=== PATIENT | female | born 1995 | race African-American/Black ===

== ENCOUNTER 2017-02-11 15:20 | Emergency (ER) | payer OTHER ==
[~2017-02-11] VITALS: Ht 157.5 cm; Wt 68.0 kg
[2017-02-11 15:21] VITALS: BP 113/55; PULSE 71; RESP 16; TEMP 99.1; O2SAT 98
--- NOTE | 2017-02-11 17:58 | PD ---
HPI Chief Complaint: ENT Complaint Time Seen by Provider: 17:57 Travel History International Travel<30 days: No Contact w/Intl Traveler<30days: No Traveled to known affect area: No History of Present Illness HPI 21-year-old female here for evaluation of sore throat. Symptoms started 1 week ago. It hurts to swallow and her tonsils feel swollen when she swallows. She also endorses slight rhinorrhea. She was seen by school nurse and was prescribed amoxicillin approximately 5 days ago. Symptoms have not improved which is what prompted evaluation. She does endorse some increased fatigue over the past several days as well. Denies fevers, chills, cough, rash. No recent travel. No sick contacts. She has no other complaints at this time. [facility] Past Medical History ?: Not LMP: 01/20/17 Social History Alcohol Use: No Tobacco Use: Yes Allergies-Medications (Allergen,Severity, Reaction): Coded Allergies: No Known Allergies (Unverified , 02/11/17) Reported Meds & Prescriptions Reported Meds & Active Scripts Active Reported [Vivance] Amoxicillin 500 Mg Tab 500 Mg PO BID Review of Systems Except as stated in HPI: all other systems reviewed are Neg Physical Exam Narrative GENERAL: Well-nourished female in no acute distress SKIN: Warm and dry. HEAD: Atraumatic. Normocephalic. EYES: Pupils equal and round. No scleral icterus. No injection or drainage. ENT: No nasal bleeding or discharge. Mucous membranes pink and moist. Tonsillar erythema and exudate noted bilaterally. Uvula midline with no mass effect. NECK: Trachea midline. No JVD. Anterior cervical lymphadenopathy is noted. CARDIOVASCULAR: Regular rate and rhythm. No murmur appreciated. RESPIRATORY: No accessory muscle use. Clear to auscultation. Breath sounds equal bilaterally. GASTROINTESTINAL: Abdomen soft, non-tender, nondistended. Hepatic and splenic margins not palpable. Data Data Last Documented VS Vital Signs Date Time Temp Pulse Resp B/P (MAP) Pulse Ox O2 Delivery O2 Flow Rate FiO2 02/11/17 19:27 02/11/17 15:21 99.1 71 16 98 Room Air Orders Orders Monoscreen (02/11/17 18:08) Group A Rapid Strep Screen (02/11/17 18:08) Strep Culture (Group A) (02/11/17 18:05) Ed Discharge Order (02/11/17 19:22) Labs Laboratory Tests Test 02/11/17 18:05 Monoscreen NEG MDM Medical Decision Making Medical Screen Exam Complete: Yes Emergency Medical Condition: Yes Medical Record Reviewed: Yes Differential Diagnosis Streptococcal pharyngitis, tonsillitis, peritonsillar abscess, infectious mononucleosis, herpangina Narrative Course [place] screen and rapid strep screen pending, case signed out to oncoming provider pending results. Bipin Rodríguez Feb 11, 2017 17:57
[2017-02-11] MEDS ORDERED: VIVANCE (18:14)
[2017-02-11] MEDS ORDERED: AMOX500T PO (18:14)
--- NOTE | 2017-02-11 19:22 | PD ---
Physical Exam Narrative Patient was signed out to me by previous provider pending lab results. Please see their documentation for full H&P. Briefly patient 21-year-old female complaining of sore throat. There is no drooling. Patient able swallow own saliva. No tripoding. Uvula is midline. Data Data Last Documented VS Vital Signs Date Time Temp Pulse Resp B/P (MAP) Pulse Ox O2 Delivery O2 Flow Rate FiO2 02/11/17 19:27 02/11/17 15:21 99.1 71 16 98 Room Air Orders Orders Monoscreen (02/11/17 18:08) Group A Rapid Strep Screen (02/11/17 18:08) Strep Culture (Group A) (02/11/17 18:05) Ed Discharge Order (02/11/17 19:22) Labs Laboratory Tests Test 02/11/17 18:05 Monoscreen NEG MDM Supervised Visit with VERA: No Narrative Course Patient looks great, non-ill appearing. The patient is tolerating fluids and is well hydrated. Appears viral pharyngitis with viral symptom complex. No clinical evidence by history or evaluation to suspect meningitis and/or sepsis. There was no evidence to suggest peritonsillar abscess or retropharyngeal abscess. I discussed with the patient, diagnosis, plan of care and to follow up with the patients primary physician. The patient was instructed to return if the worsens in anyway, especially if not tolerating fluids, increased pain or swelling, difficulty swallowing or breathing, or as needed. The patient agreed with plan. Patient in no obvious distress upon re-evaluation. All pertinent laboratory result(s) discussed with patient. Any questions/concerns in reference to patient diagnosis/condition discussed and clarified prior to patient's discharge. Reinforced sheer importance of close follow up with patient's primary physician or primary care clinic. Instructed patient to return to ED immediately, if symptoms return/worsen. Patient showed understanding of above instructions. Further instructions and recommendations were detailed in discharge paperwork. Patient ambulated without difficulty out of ED at discharge. Diagnosis Primary Impression: Pharyngitis Qualified Codes: J02.9 - Acute pharyngitis, unspecified Referrals: [facility] Patient Instructions: General Instructions, Pharyngitis (ED) Additional Instruction: Follow-up with your primary care physician next week for reevaluation. Use over -the-counter Tylenol and/or ibuprofen as needed for pain. Follow instructions on the packaging. Drink plenty of non-caffeinated and non-alcoholic fluids. Return to the emergency department if symptoms get worse. Disposition: 01 DISCHARGE HOME Condition: Stable Chris Sanchez Feb 11, 2017 19:22
== END 2017-02-11 19:42 | disposition home or self-care (01) ==
LOC: NEPK 15:20
DX: J02.9 Acute pharyngitis, unspecified (principal); Z72.0 Tobacco use
CPT/HCPCS: 86308; 87081; 87880; 99283